=== PATIENT | male | born 1985 | race Caucasian/White ===

== ENCOUNTER 2021-08-25 14:00 | Emergency (ER) | payer OTHER ==
[~2021-08-25] VITALS: Ht 182.9 cm; Wt 109.0 kg
[2021-08-25] VITALS (9 sets, daily range): BP systolic 108–140; BP diastolic 73–94
[2021-08-25] MEDS ORDERED: KEFLEX500 MG PO (16:38)
[2021-08-25] MEDS ORDERED: TRAMADOL HCL50 MG PO (16:38)
[2021-08-26] MEDS ORDERED: KEFLEX500 MG PO ×2 (11:22→12:15)
[2021-08-26] MEDS ORDERED: ULTRAM50 M1 PO (12:16)
== END 2021-08-25 16:54 | disposition home or self-care (01) | DRG 605 ==
LOC: ED 14:00
PROC: 0HQGXZZ Repair Left Hand Skin, External Approach (ICD-10-PCS; principal; 2021-08-25)
DX: S61.012A Laceration without foreign body of left thumb without damage to nail, initial encounter (principal); W26.8XXA Contact with other sharp object(s), not elsewhere classified, initial encounter; Y93.89 Activity, other specified; Y92.63 Factory as the place of occurrence of the external cause; Y99.0 Civilian activity done for income or pay